=== PATIENT | female | born 1940 | race Caucasian/White ===

== ENCOUNTER 2017-07-04 12:26 | Observation (INO) | payer MEDICARE ==
[~2017-07-04] VITALS: Ht 170.2 cm; Wt 83.5 kg
[~2017-07-04 12:26] MED LIST: AMBI10TA PO; AMLO10 PO; ASPI1TAB57 PO; DIAZ2 PO; GENT0.2D2 EACH EYE; HYDR-3675 PO; LEVO-13 PO; LIPI10TA PO; MULTTAB67 PO; OCUVCAP PO
[2017-07-04 12:29] VITALS: BP 180/80; PULSE 100; RESP 20; TEMP 97.7; O2SAT 98
--- NOTE | 2017-07-04 12:43 | PD ---
HPI Chief Complaint: Edema Time Seen by Provider: 12:32 Travel History International Travel<30 days: No Contact w/Intl Traveler<30days: No Traveled to known affect area: No History of Present Illness HPI Patient is a 76-year-old female presents emergency department for evaluation of left ankle swelling for the past few weeks. Patient states it really got bad the past few days. She states she has been wrapping it keeping it elevated and she has not had any relief of the symptoms. She states she has been on Lasix in the past and wonders if this would help this time.. She states that she has had a repair of her left ankle in the past from orthopedic standpoint this is primarily with the swelling is accumulating. She states she told her primary care physician about these and she was told to come in the emergency department to exclude a DVT. No shortness of breath no chest pain. No history of stasis, no history of DVT in the past, no history of injury to the leg. States symptoms for the past few weeks, gradually worsening, associated signs symptoms in context as above. PFSH Past Medical History Arthritis: Yes Asthma: No Autoimmune Disease: No Blood Disorders: No Anxiety: No Depression: Yes Heart Rhythm Problems: No Cancer: Yes (NON-HODGKIN'S LYMPHOMA) Cardiovascular Problems: No High Cholesterol: No Chemotherapy: Yes Chest Pain: No Congestive Heart Failure: No COPD: No Cerebrovascular Accident: Yes (11/2012) Diabetes: No Diminished Hearing: No Endocrine: Yes (hypothyroidism) Gastrointestinal Disorders: Yes (GERD; HX ULCER; COLOSTOMY) GERD: No Glaucoma: No Genitourinary: Yes (neurogenic bladder) Headaches: Yes Hepatitis: No Hiatal Hernia: No Hypertension: Yes Immune Disorder: No Implanted Vascular Access Dvce: Yes Kidney Stones: No Musculoskeletal: Yes Neurologic: Yes (possible stroke) Psychiatric: Yes Reproductive: No Respiratory: No Migraines: Yes Radiation Therapy: Yes Renal Failure: No Sleep Apnea: Yes Thyroid Disease: Yes Ulcer: Yes Menopausal: Yes Past Surgical History Abdominal Surgery: Yes (11/20 LAP JANAY; 09/20 EXP LAP LYSIS ADHESION;LLQ colostomy) AICD: No Body Medical Devices: MORPHINE PUMP, 15 screws and 3 plates in ankle, spinal cord stimulator Cardiac Surgery: No Cholecystectomy: Yes Ear Surgery: No Endocrine Surgery: No Eye Surgery: Yes (ARPITA CATARACT SURGERY) Genitourinary Surgery: No Gynecologic Surgery: No Hysterectomy: No Joint Replacement: Yes (RIGHT KNEE) Neurologic Surgery: Yes (SPINAL CORD STIMULATORS x 3) Oral Surgery: No Pacemaker: No Thoracic Surgery: No Tonsillectomy: Yes Other Surgery: Yes (colostomy) Social History Alcohol Use: No Tobacco Use: No Substance Use: No Allergies-Medications (Allergen,Severity, Reaction): Coded Allergies: latex (Unverified Allergy, Severe, 07/04/17) phenobarbital (Unverified Allergy, Severe, 07/04/17) Reported Meds & Prescriptions Reported Meds & Active Scripts Active Reported Levothyroxine (Levothyroxine Sodium) 150 Mcg Tab 150 Mcg PO DAILY [morphine pump] pt states she has a morphine pump, unknown dose and frequency of morphine Mirtazapine 15 Mg Tab 15 Mg PO HS Ocuvite Lutein (Multiple Vitamins W/ Minerals) 1 Cap Cap 1 Cap PO DAILY Multiple Vitamin 1 Tab 1 Tab PO DAILY Valium (Diazepam) 2 Mg Tab 0.5 Mg PO DAILY PRN Aspirin 81 (Aspirin) 81 Mg Tabdr 81 Mg PO DAILY Lipitor (Atorvastatin Calcium) 10 Mg Tab 10 Mg PO HS Ambien (Zolpidem Tartrate) 10 Mg Tab 10 Mg PO HS PRN Norvasc (Amlodipine Besylate) 10 Mg Tab 10 Mg PO DAILY Review of Systems Except as stated in HPI: all other systems reviewed are Neg Physical Exam Narrative GENERAL: Well-developed well-nourished, obese female in no obvious distress SKIN: Focused skin assessment warm/dry. HEAD: Atraumatic. Normocephalic. EYES: Pupils equal and round. No scleral icterus. No injection or drainage. ENT: No nasal bleeding or discharge. Mucous membranes pink and moist. NECK: Trachea midline. No JVD. CARDIOVASCULAR: Regular rate and rhythm. No murmur appreciated. RESPIRATORY: No accessory muscle use. Clear to auscultation. Breath sounds equal bilaterally. GASTROINTESTINAL: Abdomen soft, non-tender, nondistended. Hepatic and splenic margins not palpable. MUSCULOSKELETAL: No obvious deformities. No clubbing. No cyanosis. There is increased edema to the left lower extremity particularly over the ankle but there is also edema up to the distal femur. Pulses motor and sensory intact distally in all 4 extremities. NEUROLOGICAL: Awake and alert. No obvious cranial nerve deficits. Motor grossly within normal limits. Normal speech. PSYCHIATRIC: Appropriate mood and affect; insight and judgment normal. Data Data Last Documented VS Vital Signs Date Time Temp Pulse Resp B/P (MAP) Pulse Ox O2 Delivery O2 Flow Rate FiO2 07/04/17 12:29 97.7 100 20 180/80 (113) 98 Orders Orders Us Leg Venous Doppler (07/04/17 12:32) Complete Blood Count With Diff (07/04/17 14:02) Comprehensive Metabolic Panel (07/04/17 14:02) Magnesium (Mg) (07/04/17 14:02) Prothrombin Time / Inr (Pt) (07/04/17 14:02) Act Partial Throm Time (Ptt) (07/04/17 14:02) Iv Access Insert/Monitor (07/04/17 14:02) Sodium Chloride 0.9% Flush (Ns Flush) (07/04/17 14:15) Vascular Access Team Consult/P PRN (07/04/17 14:39) Vascular Poc Ultrasound (07/04/17 ) Heparin Inj (Heparin Inj) (07/04/17 15:45) Heparin-D5w 25,000 U/250 Ml (Heparin-D5w (07/04/17 15:45) Cbc No Diff, Includes Plts (07/07/17 06:00) Act Partial Throm Time (Ptt) (07/04/17 22:36) Occult Blood (Hemoccult) Stool (07/04/17 15:36) Ondansetron Inj (Zofran Inj) (07/04/17 15:45) Admit Order (Ed Use Only) (07/04/17 ) Labs Laboratory Tests Test 07/04/17 14:30 White Blood Count 9.8 TH/MM3 Red Blood Count 4.04 MIL/MM3 Hemoglobin 13.0 GM/DL Hematocrit 39.0 % Mean Corpuscular Volume 96.5 FL Mean Corpuscular Hemoglobin 32.1 PG Mean Corpuscular Hemoglobin Concent 33.2 % Red Cell Distribution Width 15.1 % Platelet Count 313 TH/MM3 Mean Platelet Volume 7.2 FL Neutrophils (%) (Auto) 72.1 % Lymphocytes (%) (Auto) 16.2 % Monocytes (%) (Auto) 8.3 % Eosinophils (%) (Auto) 2.7 % Basophils (%) (Auto) 0.7 % Neutrophils # (Auto) 7.1 TH/MM3 Lymphocytes # (Auto) 1.6 TH/MM3 Monocytes # (Auto) 0.8 TH/MM3 Eosinophils # (Auto) 0.3 TH/MM3 Basophils # (Auto) 0.1 TH/MM3 CBC Comment DIFF FINAL Differential Comment Prothrombin Time 10.4 SEC Prothromb Time International Ratio 1.0 RATIO Activated Partial Thromboplast Time 28.2 SEC Blood Urea Nitrogen 14 MG/DL Creatinine 0.93 MG/DL Random Glucose 80 MG/DL Total Protein 8.0 GM/DL Albumin 3.0 GM/DL Calcium Level 8.1 MG/DL Magnesium Level 1.2 MG/DL Alkaline Phosphatase 84 U/L Aspartate Amino Transf (AST/SGOT) 14 U/L Alanine Aminotransferase (ALT/SGPT) 16 U/L Total Bilirubin 0.3 MG/DL Sodium Level 143 MEQ/L Potassium Level 3.5 MEQ/L Chloride Level 104 MEQ/L Carbon Dioxide Level 29.7 MEQ/L Anion Gap 9 MEQ/L Estimat Glomerular Filtration Rate 58 ML/MIN MDM Medical Decision Making Medical Screen Exam Complete: Yes Emergency Medical Condition: Yes Differential Diagnosis DVT, peripheral edema, CHF unlikely, acute kidney failure unlikely, unprovoked DVT peer Narrative Course Patient room to the emergency department, ultrasound shows extensive thrombosis of the left lower extremity: Last 24 hours Impressions Lower Extremity Ultrasound 07/04/17 1232 Signed Impressions: Service Date/Time: Tuesday, July 04, 2017 13:02 - CONCLUSION: Extensive occlusive deep venous thrombosis is noted throughout the left lower extremity including the left superficial femoral, popliteal, peroneal and posterior tibial veins. Danyel Solares MD The results were discussed with the patient I recommended observation status as the patient likely will require heparinization anticoagulation and a coagulopathic workup. This appears to be a unprovoked DVT. Patient has no history of the past. Discussed heparinization with her and she has no contraindications that I can elicit from her history. Patient ultimately discussed with the residents for admission. Diagnosis Primary Impression: DVT (deep venous thrombosis) Qualified Codes: I82.412 - Acute embolism and thrombosis of left femoral vein Additional Impression: DVT of axillary vein, acute left Admitting Information Admitting Physician Requests: Observation Condition: Stable Danyel Childress MD Jul 04, 2017 12:43
--- NOTE | 2017-07-04 13:54 | RADRPT ---
EXAM DATE/TIME: 07/04/2017 13:02 [facility] COMPARISON: No previous studies available for comparison. EXTERNAL COMPARISON : [facility], US LEG, BILATERAL VENOUS DOPPLER June 28, 2010. INDICATIONS : Left leg swelling. MEDICAL HISTORY : Gastroesophageal reflux disease. Hypertension. Migraine. Neurogenic bladder. Thyroid cancer. Radi ation therapy. Chemotherapy. Non-hodgkin's lymphoma. SURGICAL HISTORY : Tonsillectomy. Cholecystectomy. Spinal cord stimulator. Exploratory laproscopy, adhesions. Colostom y. Rigth total knee replacement. ORIF, left tib/fib fracture. ENCOUNTER: Subsequent ACUITY: 4 - 6 days PAIN SCORE: 0/10 LOCATION: Left leg. TECHNIQUE: Venous ultrasound of the leg was performed from the inguinal ligament to the proximal calf. Real-massimo e, color Doppler and spectral tracing, compression and augmentation techniques were used. FINDINGS: Extensive occlusive deep venous thrombosis is noted throughout the left lower extremity including the left superficial femoral, popliteal, peroneal and posterior tibial veins. CONCLUSION: Extensive occlusive deep venous thrombosis is noted throughout the left lower extremi ty including the left superficial femoral, popliteal, peroneal and posterior tibial veins. Danyel Solares MD on July 04, 2017 at 13:50 Board Certified Radiologist. This report was verified electronically.
[2017-07-04] MEDS ORDERED: SODIUM CHLORIDE 0.9% FLUSH 10 ML FLUSH IVF PRN (14:15)
[2017-07-04] MEDS ORDERED: morphine pump (14:50)
[2017-07-04] MEDS ORDERED: MIRTA15 PO (14:50)
[2017-07-04] MEDS ORDERED: LEVO150T7 PO (14:50)
[2017-07-04 14:58] LABS: AUTOMATED NEUTROPHIL # 7.1 TH/MM3 (1.8-7.7); BASOPHIL # 0.1 TH/MM3 (0-0.2); BASOPHIL % 0.7 % (0.0-2.0); EOSINOPHIL # 0.3 TH/MM3 (0-0.4); EOSINOPHIL % 2.7 % (0.0-4.0); LYMPH % 16.2 % (9.0-44.0); LYMPHOCYTE # 1.6 TH/MM3 (1.0-4.8); MEAN CELL VOLUME 96.5 FL (80.0-100.0); MEAN CORPUSCULAR HEMOGLOBIN 32.1 PG (27.0-34.0); MEAN CORPUSCULAR HGB CONC 33.2 % (32.0-36.0); MEAN PLATELET VOLUME 7.2 FL (7.0-11.0); MONO % 8.3 % (0.0-8.0); MONOCYTE # 0.8 TH/MM3 (0-0.9); NEUT % 72.1 % (16.0-70.0); PLATELET COUNT 313 TH/MM3 (150-450); RED BLOOD COUNT 4.04 MIL/MM3 (4.00-5.30); RED CELL DISTRIBUTION WIDTH 15.1 % (11.6-17.2); WHITE BLOOD COUNT 9.8 TH/MM3 (4.0-11.0)
[2017-07-04 15:31] LABS: PROTHROMBIN TIME - PATIENT 10.4 SEC (9.8-11.6)
[2017-07-04] MEDS ORDERED: ONDANSETRON HCL 4 MG/2 ML VIAL IV PUSH ONE (15:45)
[2017-07-04] MEDS ORDERED: HEPARIN-D5W 25,000 U/250 ML 250 ML IV PRN ×2 (15:45→16:00)
[2017-07-04] MEDS ORDERED: HEPARIN SODIUM - IV 10,000 UNITS/10 ML VIAL IV ONE (15:45)
[2017-07-04 15:48] LABS: ALT (GPT) 16 U/L (10-53); AST (GOT) 14 U/L (15-37); BICARBONATE 29.7 MEQ/L (21.0-32.0); BLOOD UREA NITROGEN 14 MG/DL (7-18); CALCIUM 8.1 MG/DL (8.5-10.1); CHLORIDE 104 MEQ/L (98-107); CREATININE 0.93 MG/DL (0.50-1.00); GLOMERULAR FILTRATION RATE 58 ML/MIN (>89); GLUCOSE,RANDOM 80 MG/DL (74-106); MAGNESIUM 1.2 MG/DL (1.5-2.5); SODIUM (NA) 143 MEQ/L (136-145)
[2017-07-04 15:50] LABS: ALKALINE PHOSPHATASE 84 U/L (45-117); TOTAL BILIRUBIN ADULT 0.3 MG/DL (0.2-1.0)
[2017-07-04 16:00] VITALS: BP 143/68; PULSE 88; RESP 20; O2SAT 98
--- NOTE | 2017-07-04 16:04 | HHI.HP ---
[facility] Service Family Medicine Primary Care Physician Unknown Admission Diagnosis Extensive Occlusive DVT to LLE Diagnoses: Chief Complaint: leg swelling International Travel<30 Days: No Contact w/Intl Traveler<30days: No History of Present Illness 76-year-old female with long past medical history of non-Hodgkin's lymphoma, hypertension, colostomy, morphine pain pump presents with leg swelling. Patient states she started noticing her left ankle swelling on Sunday , and then progressively worsened. She denies any redness, however she does note that her left leg looks shinier than usual. Of note, she does have much feeling in her left leg, which she says is due to over radiation from her cancer. She has seen by her DIRECTOR OF PROVIDER RELATIONS Sunday, who told her PCP, Dr. Vergara, who recommended to come into the ER. She denies any trouble with walking. Denies any history of DVT. Denies any recent travel. States her non-Hodgkin's lymphoma has been in remission for 35 years. She lives alone, just has a DIRECTOR OF PROVIDER RELATIONS come by 2 times a week. Otherwise, denies any other symptoms, including chest pain, shortness of breath, dizziness, abdominal pain. Review of Systems Constitutional: DENIES: Fever, Weight gain, Weight loss, Chills, Dizziness, Change in appetite Eyes: DENIES: Blurred vision, Eye pain, Vision loss, Double Vision Ears, nose, mouth, throat: DENIES: Hearing loss, Throat pain, Running Nose Respiratory: DENIES: Cough, Snoring, Sputum production, Shortness of breath Cardiovascular: COMPLAINS OF: Lower Extremity Edema, DENIES: Chest pain, Palpitations, Syncope Gastrointestinal: DENIES: Abdominal pain, Black stools, Bloody stools, Constipation, Diarrhea, Nausea, Vomiting Genitourinary: DENIES: Urinary frequency, Hematuria Musculoskeletal: COMPLAINS OF: Joint Swelling, DENIES: Joint pain, Muscle aches Integumentary: DENIES: Rash, Nail changes Hematologic/lymphatic: DENIES: Bruising, Lymphadenopathy Neurologic: COMPLAINS OF: Paresthesias, DENIES: Abnormal gait, Headache, Seizures Psychiatric: DENIES: Mood changes, Depression Past Family Social History Past Medical History Chronic pain with a implanted morphine pain pump Non-Hodgkin's lymphoma treated with chemotherapy and radiation approximately 35 years ago per patient 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 Colostomy urinary retention chronic require self-catheterization HTN Hypothyroidism Spinal cord stimulator Essential tremors Past Surgical History Implantation of permanent pain pump Spinal cord stimulator Right knee surgery Colostomy with colon resection Reported Medications Reported Meds & Active Scripts Active Reported Levothyroxine (Levothyroxine Sodium) 150 Mcg Tab 150 Mcg PO DAILY [morphine pump] pt states she has a morphine pump, unknown dose and frequency of morphine Mirtazapine 15 Mg Tab 15 Mg PO HS Ocuvite Lutein (Multiple Vitamins W/ Minerals) 1 Cap Cap 1 Cap PO DAILY Multiple Vitamin 1 Tab 1 Tab PO DAILY Valium (Diazepam) 2 Mg Tab 0.5 Mg PO DAILY PRN Aspirin 81 (Aspirin) 81 Mg Tabdr 81 Mg PO DAILY Lipitor (Atorvastatin Calcium) 10 Mg Tab 10 Mg PO HS Ambien (Zolpidem Tartrate) 10 Mg Tab 10 Mg PO HS PRN Norvasc (Amlodipine Besylate) 10 Mg Tab 10 Mg PO DAILY Allergies: Coded Allergies: latex (Unverified Allergy, Severe, 07/04/17) phenobarbital (Unverified Allergy, Severe, 07/04/17) Active Ordered Medications Active Medications Heparin Sodium (Porcine) (Heparin Inj) 5,000 units ONCE ONCE IV; Start at 15:45; Stop 07/04/17 at 15:57; Status DC Heparin Sodium/ Dextrose 250 ml @ 15 mls/hr TITRATE PRN IV; Start 07/04/17 at 16:00 Heparin Sodium/ Dextrose 250 ml @ 0 mls/hr TITRATE PRN IV; Start 07/04/17 at 15 :45; Stop 07/04/17 at 15:58; Status DC Ondansetron HCl (Zofran Inj) 4 mg ONCE ONCE IV PUSH; Start 07/04/17 at 15:45; Stop 07/04/17 at 15:56; Status DC Sodium Chloride (NS Flush) 2 ml UNSCH PRN IVF; Start 07/04/17 at 14:15 Family History Father in his 70s secondary to her complications Mother at 94 secondary to carcinoma unknown type Social History Patient lives alone Independent in ADLs. Uses walker/wheelchair at home. DIRECTOR OF PROVIDER RELATIONS comes by 2x/week Denies ETOH use tobacco use or illicit drug use Physical Exam Vital Signs Vital Signs Date Time Temp Pulse Resp B/P (MAP) Pulse Ox O2 Delivery O2 Flow Rate FiO2 07/04/17 12:29 97.7 100 20 180/80 (113) 98 Physical Exam GENERAL: This is a well-nourished, well-developed patient, in no apparent distress. SKIN: No rashes, ecchymoses or lesions. Cool and dry. HEAD: Atraumatic. Normocephalic. EYES: Pupils equal round and reactive. Extraocular motions intact. No scleral icterus. No injection or drainage. ENT: Throat without erythema, tonsillar hypertrophy or exudate. Uvula midline. Airway patent. NECK: Trachea midline. No JVD or lymphadenopathy. Supple, nontender. CARDIOVASCULAR: Regular rate and rhythm without murmurs, gallops, or rubs. RESPIRATORY: Clear to auscultation. Breath sounds equal bilaterally. No wheezes , rales, or rhonchi. GASTROINTESTINAL: Abdomen soft, non-tender, nondistended. No hepato-splenomegaly , or palpable masses. No guarding. Colostomy in place. Morphine pump in place. MUSCULOSKELETAL: Extremities with 2+ pitting edema bilaterally up to mid-majano. Pt denies any tenderness, but without feeling. Pulses intact. NEUROLOGICAL: Awake and alert. Cranial nerves II through XII intact. Motor and sensory grossly within normal limits. Normal speech. Laboratory Laboratory Tests Test 07/04/17 14:30 White Blood Count 9.8 Red Blood Count 4.04 Hemoglobin 13.0 Hematocrit 39.0 Mean Corpuscular Volume 96.5 Mean Corpuscular Hemoglobin 32.1 Mean Corpuscular Hemoglobin Concent 33.2 Red Cell Distribution Width 15.1 Platelet Count 313 Mean Platelet Volume 7.2 Neutrophils (%) (Auto) 72.1 Lymphocytes (%) (Auto) 16.2 Monocytes (%) (Auto) 8.3 Eosinophils (%) (Auto) 2.7 Basophils (%) (Auto) 0.7 Neutrophils # (Auto) 7.1 Lymphocytes # (Auto) 1.6 Monocytes # (Auto) 0.8 Eosinophils # (Auto) 0.3 Basophils # (Auto) 0.1 CBC Comment DIFF FINAL Differential Comment Prothrombin Time 10.4 Prothromb Time International Ratio 1.0 Activated Partial Thromboplast Time 28.2 Blood Urea Nitrogen 14 Creatinine 0.93 Random Glucose 80 Total Protein 8.0 Albumin 3.0 Calcium Level 8.1 Magnesium Level 1.2 Alkaline Phosphatase 84 Aspartate Amino Transf (AST/SGOT) 14 Alanine Aminotransferase (ALT/SGPT) 16 Total Bilirubin 0.3 Sodium Level 143 Potassium Level 3.5 Chloride Level 104 Carbon Dioxide Level 29.7 Anion Gap 9 Estimat Glomerular Filtration Rate 58 Result Diagram: 07/04/17 1430 07/04/17 1430 Imaging Last Impressions Lower Extremity Ultrasound 07/04/17 1232 Signed Impressions: Service Date/Time: Tuesday, July 04, 2017 13:02 - CONCLUSION: Extensive occlusive deep venous thrombosis is noted throughout the left lower extremity including the left superficial femoral, popliteal, peroneal and posterior tibial veins. Danyel Solares MD Caprinnisha VTE Risk Assessment Caprini VTE Risk Assessment: Mod/High Risk (score >= 2) Caprini Risk Assessment Model Point Value = 1 Point Value = 2 Point Value = 3 Point Value = 5 Age 41-60 Minor surgery BMI > 25 kg/m2 Swollen legs Varicose veins or History of unexplained or recurrent spontaneous Oral contraceptives or hormone replacement Sepsis (< 1 month) Serious lung disease, including pneumonia (< 1 month) Abnormal pulmonary function Acute myocardial infarction Congestive heart failure (< 1 month) History of inflammatory bowel disease Medical patient at bed rest Age 61-74 Arthroscopic surgery Major open surgery (> 45 min) Laparoscopic surgery (> 45 min) Malignancy Confined to bed (> 72 hours) Immobilizing plaster cast Central venous access Age >= 75 History of VTE Family history of VTE Factor V Leiden Prothrombin [id number] Lupus anticoagulant Anticardiolipin antibodies Elevated serum homocysteine Heparin-induced thrombocytopenia Other congenital or acquired thrombophilia Stroke (< 1 month) Elective arthroplasty Hip, pelvis, or leg fracture Acute spinal cord injury (< 1 month) Prophylaxis Regimen Total Risk Factor Score Risk Level Prophylaxis Regimen 0-1 Low Early ambulation 2 Moderate Order ONE of the following: *Sequential Compression Device (SCD) *Heparin 5000 units SQ BID 3-4 Higher Order ONE of the following medications: *Heparin 5000 units SQ TID *Enoxaparin/Lovenox 40 mg SQ daily (WT < 150 kg, CrCl > 30 mL/min) *Enoxaparin/Lovenox 30 mg SQ daily (WT < 150 kg, CrCl > 10-29 mL/min) *Enoxaparin/Lovenox 30 mg SQ BID (WT < 150 kg, CrCl > 30 mL/min) AND/OR *Sequential Compression Device (SCD) 5 or more Highest Order ONE of the following medications: *Heparin 5000 units SQ TID (Preferred with Epidurals) *Enoxaparin/Lovenox 40 mg SQ daily (WT < 150 kg, CrCl > 30 mL/min) *Enoxaparin/Lovenox 30 mg SQ daily (WT < 150 kg, CrCl > 10-29 mL/min) *Enoxaparin/Lovenox 30 mg SQ BID (WT < 150 kg, CrCl > 30 mL/min) AND *Sequential Compression Device (SCD) Assessment and Plan Assessment and Plan 68-year-old female with history of non-Hodgkin's lymphoma, hypertension, chronic pain presents with leg swelling, found to have extensive DVT in her left lower extremity. Patient was started on heparin in the ED. Will admit for clinical workup and transition to outpatient anticoagulation Code Status Full Discussed Condition With Dr. May Problem List: (1) DVT (deep venous thrombosis) ICD Codes: I82.409 - Acute embolism and thrombosis of unspecified deep veins of unspecified lower extremity Status: Acute Plan: Patient presents with left leg swelling. 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 Ultrasound shows extensive occlusive deep venous thrombosis throughout the left lower extremity, including the left superficial femoral, popliteal, peroneal and posterior tibial veins. Unknown cause. No hx of DVT. Has hx of Non-Hodgkin's lymphoma. Never been on anticoagulation. PT/PTT wnl. Labs/Vitals wnl Will initiate a hypercoagulable workup, although may be of minimal benefit -Started on heparin drip in ED -Trend PTT, monitor CBC, monitor for signs of bleeding -Ultrasound of right leg -Protein C/S activity, Prothrombin mutation, Factor 5 mutation, Anti-thrombin levels (2) Non-Hodgkins lymphoma ICD Codes: C85.90 - Non-Hodgkin lymphoma, unspecified, unspecified site Plan: Unknown specifics of Non-Hodkin's lymphoma Received radiation >35 years ago, per pt, which she states was over-radiated and caused her chronic pain/other medical issues May be cause of her DVT May benefit from outpatient workup for recurrence. (3) Hypertension ICD Codes: I10 - Hypertension Status: Chronic Plan: Continue home med, amlodipine (4) Urinary retention ICD Codes: R33.9 - Retention of urine, unspecified Status: Chronic Plan: Pt does straight cath at home regularly -Will provide for her at bedside as needed (5) Hypothyroidism ICD Codes: E03.9 - Hypothyroidism Status: Chronic Plan: Continue home Synthroid (6) Chronic pain ICD Codes: G89.29 - Other chronic pain Plan: Morphine pump and spinal stimulator in place Continue to monitor (7) FEN Status: Acute Plan: Fluids: Tolerating PO Electrolytes: wnl, continue to monitor Nutrition: regular diet DVT ppx: Heparin gtt Problem Qualifiers (1) DVT (deep venous thrombosis): Qualified Codes: I82.412 - Acute embolism and thrombosis of left femoral vein (2) Hypertension: Qualified Codes: I10 - Essential (primary) hypertension Doug Mohr MD R2 Jul 04, 2017 16:04
[2017-07-04] MEDS ORDERED: NALOXONE HCL 0.4 MG/ML AMP IV PUSH PRN (16:45)
[2017-07-04] MEDS ORDERED: SODIUM CHLORIDE 0.9% FLUSH 10 ML FLUSH IV FLUSH PRN (16:45)
[2017-07-04] MEDS ORDERED: ONDANSETRON HCL 4 MG/2 ML VIAL IVP PRN (16:45)
[2017-07-04 17:00] VITALS: BP 156/72; PULSE 77; RESP 19; O2SAT 97
[2017-07-04 17:13] VITALS: O2SAT 97
[2017-07-04 20:08] VITALS: BP 135/65; PULSE 81; RESP 18; TEMP 98.3; O2SAT 95
[2017-07-04 20:15] VITALS: PULSE 72
[2017-07-04] MEDS: ACETAMINOPHEN 325 MG TAB PO PRN (20:36)
[2017-07-04] MEDS: SODIUM CHLORIDE 0.9% FLUSH 10 ML FLUSH IV FLUSH SCH (20:42)
[2017-07-04] MEDS ORDERED: ZOLPIDEM TARTRATE 10 MG TAB PO PRN (21:00)
[2017-07-04] MEDS ORDERED: ATORVASTATIN 10 MG TAB PO SCH (21:00)
[2017-07-04] MEDS ORDERED: MIRTAZAPINE 15 MG TAB PO SCH (21:00)
--- NOTE | 2017-07-04 22:12 | RADRPT ---
EXAM DATE/TIME: 07/04/2017 21:45 [facility] COMPARISON: US LEG LEFT VENOUS DOPPLER, July 04, 2017, 13:02. INDICATIONS : Positive on the Left. MEDICAL HISTORY : Gastroesophageal reflux disease. Hypertension. Deep venous thrombosis. Migraines. Neurogenic bladd er. Thyroid cancer. Radiation therapy. Chemotherapy. Non-hodgkin's lymphoma. SURGICAL HISTORY : Tonsillectomy. Cholecystectomy. Spinal cord stimulator. Exploratory laproscopy, adhesions. Colostom y. Rigth total knee replacement. ORIF, left tib/fib fracture. ENCOUNTER: Subsequent ACUITY: 1 day PAIN SCORE: 0/10 LOCATION: Right leg. TECHNIQUE: Venous ultrasound of the leg was performed from the inguinal ligament to the proximal calf. Real-massimo e, color Doppler and spectral tracing, compression and augmentation techniques were used. FINDINGS: There is normal compressibility of the deep venous system from the inguinal region to the proximal ca lf. No echogenic clot is seen in the lumen of the common femoral, femoral, popliteal, and posterior tibial veins. There is a normal response of the venous system to proximal and distal augmentation an d respiration. CONCLUSION: No venous thrombosis of the right lower extremity. Joel Andrade MD on July 04, 2017 at 22:10 Board Certified Radiologist. This report was verified electronically.
[2017-07-05] VITALS: BP 108/51; PULSE 70; PULSE 81; RESP 18; TEMP 97.8; O2SAT 93
[2017-07-05 01:45] LABS: AUTOMATED NEUTROPHIL # 5.2 TH/MM3 (1.8-7.7); BASOPHIL # 0.1 TH/MM3 (0-0.2); BASOPHIL % 0.8 % (0.0-2.0); EOSINOPHIL # 0.4 TH/MM3 (0-0.4); EOSINOPHIL % 4.9 % (0.0-4.0); HEMATOCRIT 33.1 % (35.0-46.0); HEMOGLOBIN 10.9 GM/DL (11.6-15.3); LYMPHOCYTE # 1.6 TH/MM3 (1.0-4.8); MEAN CELL VOLUME 95.7 FL (80.0-100.0); MEAN CORPUSCULAR HEMOGLOBIN 31.6 PG (27.0-34.0); MEAN CORPUSCULAR HGB CONC 33.1 % (32.0-36.0); MEAN PLATELET VOLUME 7.4 FL (7.0-11.0); MONOCYTE # 0.6 TH/MM3 (0-0.9); NEUT % 66.3 % (16.0-70.0); PLATELET COUNT 256 TH/MM3 (150-450); RED BLOOD COUNT 3.45 MIL/MM3 (4.00-5.30); RED CELL DISTRIBUTION WIDTH 15.7 % (11.6-17.2); WHITE BLOOD COUNT 7.8 TH/MM3 (4.0-11.0)
[2017-07-05 02:01] LABS: ALBUMIN 2.2 GM/DL (3.4-5.0); ALT (GPT) 11 U/L (10-53); AST (GOT) 10 U/L (15-37); BICARBONATE 30.8 MEQ/L (21.0-32.0); BLOOD UREA NITROGEN 15 MG/DL (7-18); CALCIUM 7.5 MG/DL (8.5-10.1); CHLORIDE 106 MEQ/L (98-107); CREATININE 0.88 MG/DL (0.50-1.00); GLOMERULAR FILTRATION RATE 62 ML/MIN (>89); GLUCOSE,RANDOM 113 MG/DL (74-106); SODIUM (NA) 144 MEQ/L (136-145)
[2017-07-05 02:07] LABS: ALKALINE PHOSPHATASE 63 U/L (45-117); TOTAL BILIRUBIN ADULT 0.2 MG/DL (0.2-1.0); TOTAL PROTEIN 6.1 GM/DL (6.4-8.2)
[2017-07-05 04:02] VITALS: PULSE 76
[2017-07-05] MEDS ORDERED: LEVOTHYROXINE SODIUM 150 MCG TAB PO SCH (06:00)
[2017-07-05] MEDS ORDERED: CALCIUM CARBONATE 1.25 GM (CA 500 MG) TAB PO ONE (07:30)
[2017-07-05] MEDS ORDERED: POTASSIUM CHLORIDE 10 MEQ CAP PO ONE (07:30)
[2017-07-05 07:43] VITALS: BP 131/60; PULSE 71; RESP 18; TEMP 98.7; O2SAT 95
[2017-07-05] MEDS: ACETAMINOPHEN 325 MG TAB PO PRN ×2 (08:08→12:34)
[2017-07-05] MEDS: SODIUM CHLORIDE 0.9% FLUSH 10 ML FLUSH IV FLUSH SCH (08:13)
[2017-07-05] MEDS ORDERED: ASPIRIN EC 81 MG TABEC PO SCH (09:00)
--- NOTE | 2017-07-05 10:03 | HHI.FPPN ---
Subjective Remarks Patient is doing well this morning. She states the swelling in her leg is gone down tremendously. She denies chest pain, nausea, vomiting, shortness of breath. She tolerated her breakfast very well this morning. She is looking forward to going home and would like to go home today. (Damian Rene MD R3) Objective Vitals Vital Signs Date Time Temp Pulse Resp B/P (MAP) Pulse Ox O2 Delivery O2 Flow Rate FiO2 07/05/17 09:08 18 07/05/17 07:43 98.7 71 18 131/60 (83) 95 07/05/17 04:02 76 07/05/17 00:00 81 07/05/17 00:00 97.8 70 18 108/51 (70) 93 07/04/17 20:15 72 07/04/17 20:08 98.3 81 18 135/65 (88) 95 07/04/17 17:30 07/04/17 17:13 97 21 07/04/17 17:00 77 19 156/72 (100) 97 Room Air 07/04/17 16:00 88 20 143/68 (93) 98 Room Air 07/04/17 12:29 97.7 100 20 180/80 (113) 98 I/O 07/04/17 07/04/17 07/04/17 07/05/17 07/05/17 07/05/17 07:00 15:00 23:00 07:00 15:00 23:00 Intake Total 180 ml Balance 180 ml Intake IV Total 180 ml (Damian Rene MD R3) Result Diagram: 07/05/17 0121 07/05/17 0121 Objective Remarks GENERAL: This is a well-nourished, well-developed patient, in no apparent distress. SKIN: Cool and dry. HEAD: Atraumatic. Normocephalic. EYES: Pupils equal round and reactive. Extraocular motions intact. No scleral icterus. No injection or drainage. ENT: Throat without erythema, tonsillar hypertrophy or exudate. Uvula midline. Airway patent. NECK: Trachea midline. No JVD or lymphadenopathy. Supple, nontender. CARDIOVASCULAR: Regular rate and rhythm without murmurs, gallops, or rubs. RESPIRATORY: Clear to auscultation. Breath sounds equal bilaterally. No wheezes , rales, or rhonchi. GASTROINTESTINAL: Abdomen soft, non-tender, nondistended. No hepato-splenomegaly , or palpable masses. No guarding. Colostomy in place. Morphine pump in place. MUSCULOSKELETAL: Great improvement in left leg swelling compared to yesterday, almost indistinguishable from the right leg NEUROLOGICAL: Awake and alert. Cranial nerves II through XII intact. Motor and sensory grossly within normal limits. Normal speech. (Damian Rene MD R3) A/P Assessment and Plan 68-year-old female with history of non-Hodgkin's lymphoma, hypertension, chronic pain presents with leg swelling, found to have extensive DVT in her left lower extremity. Patient was started on heparin in the ED; now with much improvement. She will be transitioned to by mouth xarelto and followed up as outpatient. (Damian Rene MD R3) Attending Attestation Patient seen and examined and discussed with Drs. Vinnie May and Santi Rene. Case reviewed and discussed with the resident team. Agree with physical exam findings and documented, and the plan of care as discussed with me and documented in the resident note. (Shalini Rene MD) Problem List: (1) DVT (deep venous thrombosis) ICD Codes: I82.409 - Acute embolism and thrombosis of unspecified deep veins of unspecified lower extremity Status: Acute Plan: Ultrasound shows extensive occlusive deep venous thrombosis throughout the left lower extremity, including the left superficial femoral, popliteal, peroneal and posterior tibial veins. We will transition from heparin drip to by mouth xarelto 15 mg bid x 21 days, then followed by 20 mg daily To be followed by PCP. Patient given instructions Likely idiopathic. No hx of DVT. Has hx of Non-Hodgkin's lymphoma. Never been on anticoagulation. Initiated a hypercoagulable workup, although may be of minimal benefit -Protein C/S activity, Prothrombin mutation, Factor 5 mutation, Anti-thrombin levels pending. (2) Non-Hodgkins lymphoma ICD Codes: C85.90 - Non-Hodgkin lymphoma, unspecified, unspecified site Status: Resolved Plan: Unknown specifics of Non-Hodkin's lymphoma Received radiation >35 years ago, per pt, which she states was over-radiated and caused her chronic pain/other medical issues May benefit from outpatient workup for recurrence. (3) Hypertension ICD Codes: I10 - Hypertension Status: Chronic Plan: Continue home med, amlodipine (4) Urinary retention ICD Codes: R33.9 - Retention of urine, unspecified Status: Chronic Plan: Pt does straight cath at home regularly -Will provide for her at bedside as needed (5) Hypothyroidism ICD Codes: E03.9 - Hypothyroidism Status: Chronic Plan: Continue home Synthroid (6) Chronic pain ICD Codes: G89.29 - Other chronic pain Plan: Morphine pump and spinal stimulator in place Continue to monitor (7) FEN Status: Acute Plan: Fluids: Tolerating PO Electrolytes: wnl, continue to monitor Nutrition: regular diet DVT ppx: as above (Damian Rene MD R3) Problem Qualifiers (1) DVT (deep venous thrombosis): Qualified Codes: I82.412 - Acute embolism and thrombosis of left femoral vein (2) Hypertension: Qualified Codes: I10 - Essential (primary) hypertension Damian Rene MD R3 Jul 05, 2017 10:03 Shalini Rene MD Jul 05, 2017 11:31
[2017-07-05] MEDS ORDERED: XARE15TA PO (10:06)
--- NOTE | 2017-07-05 10:07 | HHI.DCPOC ---
Discharge Care Plan Diagnosis: (1) DVT (deep venous thrombosis) Goals to Promote Your Health * To prevent worsening of your condition and complications * To maintain your health at the optimal level Directions to Meet Your Goals Take your medications as prescribed Follow your dietary instruction Follow activity as directed Keep your appointments as scheduled Take your immunizations and boosters as scheduled If your symptoms worsen call your PCP, if no PCP go to Urgent Care Center or Emergency Room Smoking is Dangerous to Your Health. Avoid second hand smoke Call the 24-hour hour crisis hotline for domestic abuse at Damian Rene MD R3 Jul 05, 2017 10:07
[2017-07-05] MEDS ORDERED: RIVAROXABAN 15 MG TAB PO SCH (11:00)
[2017-07-05 11:44] VITALS: BP 117/56; PULSE 72; RESP 18; TEMP 98.6; O2SAT 97
[2017-07-05 13:28] VITALS: O2SAT 96
[2017-07-05 13:34] VITALS: RESP 18
[2017-07-08 03:50] LABS: ANTI-THROMBIN III ACT 85 (80-120)
[2017-07-09 18:52] LABS: PROTEIN C ACTIVITY 76 % (70 - 150); PROTEIN S ACTIVITY 99 % (65 - 160)
== END 2017-07-05 17:00 | disposition home or self-care (01) ==
LOC: NEPD 12:26 → NEDA 15:50 → N06B 17:48
PROVIDERS: ADMIT Family Medicine; ATTEND Family Medicine
DX: I82.412 Acute embolism and thrombosis of left femoral vein (principal); I82.432 Acute embolism and thrombosis of left popliteal vein; I82.442 Acute embolism and thrombosis of left tibial vein; I82.A12 Acute embolism and thrombosis of left axillary vein; R33.9 Retention of urine, unspecified; I10 Essential (primary) hypertension; E03.9 Hypothyroidism, unspecified; G25.0 Essential tremor; C85.90 Non-Hodgkin lymphoma, unspecified, unspecified site; G47.30 Sleep apnea, unspecified; G62.9 Polyneuropathy, unspecified; G89.29 Other chronic pain; K21.9 Gastro-esophageal reflux disease without esophagitis; Z79.01 Long term (current) use of anticoagulants; Z86.73 Personal history of transient ischemic attack (TIA), and cerebral infarction without residual deficits
CPT/HCPCS: 80053; 81240; 81241; 82272; 83735; 85025; 85300; 85303; 85306; 85610; 85730; 93971; 96372; 96374; 96376; 97161; 99285; G0378; G8987; G8988; J1644; J2405